=== PATIENT | female | born 1980 | race Caucasian/White ===

== ENCOUNTER 2016-11-08 19:32 | Emergency (ER) | payer OTHER ==
[2016-11-08 20:38] LABS: BASOPHIL % 0.9 % (0-2); PLATELET COUNT 258 x10^3mcL (130-400)
[2016-11-08 20:42] LABS: CALCIUM 8.2 mg/dL (8.5-10.1); CARBON DIOXIDE 25.8 mmol/L (21-32); CHLORIDE SERUM 109 mmol/L (98-107); CREATININE SERUM 0.9 mg/dL (0.6-1.0); GFR1 > 60 mL/min; GLUCOSE SERUM 106 mg/dL (74-106); POTASSIUM SERUM 3.8 mmol/L (3.5-5.1); RED CELL DISTRIBUTION WIDTH 20.6 % (11.5-14.5); SODIUM SERUM 144 mmol/L (136-145)
[2016-11-08 20:52] LABS: rbc morphology (normal/abnorm) ABNORMAL (NORMAL)
[2016-11-08 22:17] VITALS: BP 132/72
== END 2016-11-08 22:17 | disposition home or self-care (01) ==
LOC: ED 19:32
PROVIDERS: Emergency Medicine
DX: K08.89 Other specified disorders of teeth and supporting structures (principal); D64.9 Anemia, unspecified; J02.9 Acute pharyngitis, unspecified; R20.9 Unspecified disturbances of skin sensation
CPT/HCPCS: 36415